=== PATIENT | female | born 1960 | race Caucasian/White ===

== ENCOUNTER → 2017-01-05 | Outpatient (CLI) | payer MEDICAID | END | disposition home or self-care (01) | LOC: RAD.S 12-15 08:45 | DX: N20.0 Calculus of kidney (principal) ==

== ENCOUNTER 2017-02-04 19:54 | Emergency (ER) | payer MEDICAID ==
--- NOTE | 2017-02-05 19:07 | ER ---
ADMIT: 02/04/2017 RM/LOC: ER [facility] MR#: [id number] [id number] [place], [place] [id number] MIKI TROY Bobby [address] [place] [address] Emergency Room Report SEX: F AGE: 56 : 1960 DATE: 02/04/2017 HISTORY OF PRESENT ILLNESS: The patient is a 56-year-old female with past medical history of multiple kidney stones, endometriosis, and status post hysterectomy and bilateral oophorectomy, came to the ER with chief complaint of suprapubic and right lower quadrant pain mostly on the suprapubic area and right posterior back pain, which radiates to the medial right thigh. The patient states she has the pain for the last 3 days on and off, but it was intermittent, but the pain did not resolve and she was worried, that is the reason she came to the ER. The patient had normal bowel movement and had nausea in the ER, and states she had no vomiting. The patient states the previous kidney stones pain was more in the posterior midline back, but this one is more in the anterior and radiates to the medial thigh. The patient denies any obvious hematuria. The patient denies any fever at home. PHYSICAL EXAMINATION: GENERAL: The patient was in mild distress. VITAL SIGNS: The patient was mildly tachycardic, without any fever. HEAD and NECK: Noncontributory. LUNGS: Normal breath sounds. HEART: Normal S1, S2 without any murmurs or extra sounds. ABDOMEN: Soft, nonrigid. The patient had very mild tenderness in the suprapubic area. The patient had no CVA tenderness. No McBurney point tenderness and negative psoas and Rovsing sign. Negative obturator sign. Urine was positive. Pain was controlled. Nausea was controlled. The patient received IV fluids. The patient had 6500 white count with hemoglobin of 12.3, and platelet of 174. Creatinine was 0.9 with glucose of 124. Lipase was 249. Urine was positive for 2 wbc and 112 rbc. The patient insisted that the pain is very different from the previous renal colic pains. CT scan of the abdomen and pelvis was negative for appendicitis, but it was positive for multiple kidney stones, five 1 cm exophytic cysts in the superior pole of the right ADMIT: 02/04/2017 RM/LOC: ER [facility] MR#: [id number] [address] [id number] [id number] [place] [address] Emergency Room Report SEX: F AGE: 56 : 1960 kidney with 2.5 mm lower pole right kidney stone. The patient also has a 3.4 mm distal right urolithiasis, which cause mild hydronephrosis and mild hydroureter. Pain was controlled. The finding was discussed with the patient. There are no signs of infection. Considering the size of the distal urolithiasis of 3.4 mm, there is a big chance of passing the stone. The patient was discussed with the case. She has close followup with Nephrology and primary care physician. The patient was given Percocet for questionable pain control possible p.r.n. for renal colic and was discharged to home and was advised to use straining, coffee filter to look for any passing stone and was given return precautions, especially if there is any increasing pain or any concerns or fever to come back to the ER right away. The patient acknowledged she understood and agreed to the plan, was discharged home. Claude Raza MD/ nilda JOB #: [id number] CC: Claude Raza MD, Attending Physician Mabel Callahan APRN, Family Physician
== END 2017-02-04 23:19 | disposition home or self-care (01) ==
LOC: ER 19:54
DX: N13.2 Hydronephrosis with renal and ureteral calculous obstruction (principal); Z90.710 Acquired absence of both cervix and uterus

== ENCOUNTER → 2017-02-05 | Outpatient (CLI) | payer MEDICAID | END | disposition home or self-care (01) | LOC: RAD.S 02-03 13:30 | DX: Z13.820 Encounter for screening for osteoporosis (principal); M85.80 Other specified disorders of bone density and structure, unspecified site; Z78.0 Asymptomatic menopausal state ==